=== PATIENT | female | born 1965 | race Caucasian/White ===

== ENCOUNTER 2017-02-23 11:36 | Emergency (ER) | payer OTHER, MEDICARE ==
[2017-02-23 11:44] VITALS: BP 124/80; PULSE 70; TEMP 98.6; BMI 23.1
[2017-02-23] MEDS ORDERED: KETOROLAC TROMETHAMINE 30 MG/1 ML VIAL IVPUSH ONE (12:41)
[2017-02-23] MEDS ORDERED: SODIUM CHLORIDE 0.9% 1000 ML INFUS.BAG IV ONE (12:41)
[2017-02-23] MEDS ORDERED: KETOROLAC TROMETHAMINE 30 MG/1 ML VIAL ONE (12:49)
[2017-02-23 13:08] LABS: BASOPHIL 0.6 % (0-2.0); MCH 30.7 pg (25.7-33.7); MCHC 34.5 g/dl (32.0-36.0); MEAN CELL VOLUME 89.2 fl (80-96); MEAN PLT VOLUME 8.5 fl (7.5-11.1); NEUTROPHILS 49.5 % (42.8-82.8); PLATELET COUNT 276 K/MM3 (134-434); RDW 12.4 % (11.6-15.6); WHITE BLOOD COUNT 4.5 K/mm3 (4.0-10.8)
[2017-02-23 13:14] LABS: ALBUMIN 3.8 g/dl (3.5-5.0); ALK PHOS 46 U/L (32-92); ANION GAP 3 (8-16); BILIRUBIN,TOTAL 0.3 mg/dl (0.2-1.0); CALCIUM 8.7 mg/dl (8.4-10.2); CO2 26 mmol/L (22-28); CREATININE 0.6 mg/dl (0.6-1.3); GLUCOSE,RANDOM 97 mg/dl (74-106); SGOT/AST 16 U/L (10-42); SGPT/ALT 19 U/L (10-40); TOT PROT 6.1 g/dl (6.4-8.3)
--- NOTE | 2017-02-23 13:50 | PDOC ---
History of Present Illness - General Chief Complaint: Pain, Acute Stated Complaint: pain - History of Present Illness Initial Comments: 02/23/17 13:55 Chief complaint joint pain History of present illness: 51 years old past medical history significant for migraines, IBS, history of C. difficile and chronic Lyme. Patient is currently undergoing antibiotic treatment for her line she has chronic multiple joint pain secondary to this. Patient states over the last several days for chronic joint pain has worsened it isn't her typical location left shoulder right shoulder bilateral knees. She denies chest pain shortness of breath. No nausea no vomiting no diarrhea Past History - Past Medical History Allergies/Adverse Reactions: Allergies Allergy/AdvReac Type Severity Reaction Status Date / Time Penicillins Allergy Verified 02/23/17 11:37 sulfamethoxazole Allergy Verified 02/23/17 11:37 [From Bactrim] trimethoprim [From Bactrim] Allergy Verified 02/23/17 11:37 Home Medications: Ambulatory Orders Cannibus Oil 0 mg PO ASDIR 02/23/17 Lorazepam [Ativan] 0.5 mg PO BID 02/23/17 Oxycodone HCl/Acetaminophen [Percocet 5-325 mg Tablet] 1 tab PO TID #6 tablet MDD 3 02/23/17 COPD: No GI Disorders: Yes Other medical history: lyme dz, chronic migraines, fibromyalga - Suicide/Smoking/Psychosocial Hx Smoking Status: No Smoking History: Never smoked Number of Cigarettes Smoked Daily: 0 Hx Alcohol Use: No Drug/Substance Use Hx: Yes Substance Use Type: Prescribed Review of Systems - Review of Systems Able to Perform ROS?: No Comments:: 02/23/17 13:58 ROS: A complete review of 10 out of 10 review of systems is taken and is negative apart from what is previously mentioned below and in the HPI. Is the patient limited Armenian proficient: No *Physical Exam - Vital Signs Last Vital Signs Temp Pulse Resp BP Pulse Ox 98.6 F 70 16 124/80 100 02/23/17 11:37 02/23/17 11:37 02/23/17 11:37 02/23/17 11:37 02/23/17 11:37 - Physical Exam Comments: 02/23/17 13:59 Vitals: Triage Vital signs reviewed General Appearance: no acute distress, well nourished well developed, Head: Atraumatic, Neck: Supple;No Nucal rigidity Chest Wall: Nontender Cardiac: Regular rate and rhythym, no murmurs, no rubs, no gallops, Lungs: Clear to auscultation bilateral, good air movement bilaterally, Abdomen: Soft, non distended, normal bowel sounds, non tender to palpation Extremities: Full range of motion to all extremities, reproducible left shoulder pain with range of motion. Skin: Warm and dry, no rashes or lesions, no rash, no petechiae Neuro: AOX3; Cranial Nerves 2-12 grossly intact, Strength intact to all extremities, Sensation intact to all extremities,gait normal Psych: normal mood, normal affect 02/23/17 14:01 ED Treatment Course - LABORATORY CBC & Chemistry Diagram: 02/23/17 12:48 02/23/17 12:48 - ADDITIONAL ORDERS Additional order review: Laboratory Results 02/23/17 12:48 Sodium 139 Potassium 3.7 Chloride 110 H Carbon Dioxide 26 Anion Gap 3 L BUN 11 D Creatinine 0.6 Creat Clearance w eGFR > 60 Random Glucose 97 Calcium 8.7 Total Bilirubin 0.3 D AST 16 ALT 19 D Alkaline Phosphatase 46 Total Protein 6.1 L Albumin 3.8 02/23/17 12:48 RBC 4.37 MCV 89.2 MCHC 34.5 RDW 12.4 MPV 8.5 Neutrophils % 49.5 Lymphocytes % 41.0 H Monocytes % 6.9 Eosinophils % 2.0 Basophils % 0.6 - Medications Given in the ED: ED Medications Discontinued Medications Generic Name Dose Route Start Last Admin Trade Name Freq PRN Reason Stop Dose Admin Ketorolac Tromethamine 30 mg 02/23/17 12:41 02/23/17 12:54 Toradol Injection - IVPUSH 02/23/17 12:42 30 mg ONCE ONE Administration Sodium Chloride 1,000 ml 02/23/17 12:41 02/23/17 12:54 Normal Saline - IV 02/23/17 12:42 1,000 ml ONCE ONE Administration Medical Decision Making - Medical Decision Making 02/23/17 14:02 Well-appearing no apparent distress patient presents with chronic joint pain secondary to line. She is currently finishing a course of antibiotics. She has no chest pain or shortness of breath her pain is reproducible and has been present for several months. In the emergency department she received IV fluids and Toradol she feels somewhat better. We'll discharge home a 2 day course of Percocet if no improvement she'll follow-up with her doctor on Sunday Findings, need for follow-up and strict return instructions discussed with patient. *DC/Admit/Observation/Transfer Diagnosis at time of Disposition: Joint pain Qualifiers: Joint pain location: shoulder Laterality: unspecified laterality Qualified Code (s): M25.519 - Pain in unspecified shoulder - Discharge Dispostion Condition at time of disposition: Stable - Referrals - Patient Instructions Additional Instructions: Drink plenty fluids. Take all home medications as prescribed. Follow-up with your doctor on Sunday. Take Percocet only as prescribed only if absolutely needed. Do not drive on this medication. Take with an [id number] stool softener such as Colace. Do not take this medication with any other narcotics or sedating medications are with alcohol. - Post Discharge Activity
== END 2017-02-23 14:19 | disposition home or self-care (01) ==
LOC: FER 11:36
PROC: 3E0333Z Introduction of Anti-inflammatory into Peripheral Vein, Percutaneous Approach (ICD-10-PCS; principal; 2017-02-23)
PROC: 3E0337Z Introduction of Electrolytic and Water Balance Substance into Peripheral Vein, Percutaneous Approach (ICD-10-PCS; 2017-02-23)
DX: M25.519 Pain in unspecified shoulder (principal); G89.29 Other chronic pain
CPT/HCPCS: 36415; 80053; 85025; 99282-25

== ENCOUNTER 2017-06-05 16:36 | Emergency (ER) | payer OTHER, MEDICARE ==
[2017-06-05 17:15] VITALS: BP 117/80; PULSE 76; TEMP 97.4; BMI 23.3
--- NOTE | 2017-06-05 17:20 | PDOC ---
History of Present Illness - General Chief Complaint: Chest Pain Stated Complaint: CHEST PAIN Time Seen by Provider: 06/05/17 16:58 Past History - Past Medical History Allergies/Adverse Reactions: Allergies Allergy/AdvReac Type Severity Reaction Status Date / Time sulfamethoxazole Allergy Verified 06/05/17 16:38 [From Bactrim] trimethoprim [From Bactrim] Allergy Verified 06/05/17 16:38 Home Medications: Ambulatory Orders Cannibus Oil 0 mg PO ASDIR 02/23/17 LORazepam [Ativan] 0.5 mg PO BID 02/23/17 Acetaminophen [Tylenol] 325 mg PO PRN PRN 06/05/17 Ceftriaxone [Rocephin 2Gm Ivpb (Pre-Docked)] 2 gm IVPB DAILY 06/05/17 COPD: No GI Disorders: Yes - Suicide/Smoking/Psychosocial Hx Smoking Status: No Smoking History: Never smoked Have you smoked in the past 12 months: No Number of Cigarettes Smoked Daily: 0 Information on smoking cessation initiated: No Hx Alcohol Use: No Drug/Substance Use Hx: No Substance Use Type: Prescribed *Physical Exam - Vital Signs Last Vital Signs Temp Pulse Resp BP Pulse Ox 97.4 F L 76 20 117/80 100 06/05/17 16:37 06/05/17 16:37 06/05/17 16:37 06/05/17 16:37 06/05/17 16:37
--- NOTE | 2017-06-05 17:27 | PDOC ---
History of Present Illness - General History Source: Patient Exam Limitations: No Limitations - History of Present Illness Initial Comments: 06/05/17 17:20 Patient is a 51F with history of chronic lyme disease with PICC line getting 2g ceftriaxone since Mar 26 here today complaining of chest pain since a half hour before presenting to the ED. She denies shortness of breath, nausea, vomiting, fevers and chills. She denies worsening of pain with exertion or improvement with rest. She denies changes in pain with positioning. She denies leg swelling, recent travel, and history of blood clots. 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 She is also complaining of pain at the PICC insertion site, she says there was a small amount of redness around the site. <Andres Joshi - Last Filed: 06/05/17 19:13> <Joshua Hwang - Last Filed: 06/07/17 10:18> - General Chief Complaint: Chest Pain Stated Complaint: CHEST PAIN Time Seen by Provider: 06/05/17 16:58 Past History - Past Medical History COPD: No GI Disorders: Yes - Suicide/Smoking/Psychosocial Hx Smoking Status: No Smoking History: Never smoked Have you smoked in the past 12 months: No Number of Cigarettes Smoked Daily: 0 Information on smoking cessation initiated: No Hx Alcohol Use: No Drug/Substance Use Hx: No Substance Use Type: Prescribed <Andres Joshi - Last Filed: 06/05/17 19:13> <Joshua Hwang - Last Filed: 06/07/17 10:18> - Past Medical History Allergies/Adverse Reactions: Allergies Allergy/AdvReac Type Severity Reaction Status Date / Time sulfamethoxazole Allergy Verified 06/05/17 16:38 [From Bactrim] trimethoprim [From Bactrim] Allergy Verified 06/05/17 16:38 Home Medications: Ambulatory Orders Cannibus Oil 0 mg PO ASDIR 02/23/17 LORazepam [Ativan] 0.5 mg PO BID 02/23/17 Acetaminophen [Tylenol] 325 mg PO PRN PRN 06/05/17 Ceftriaxone [Rocephin 2Gm Ivpb (Pre-Docked)] 2 gm IVPB DAILY 06/05/17 Review of Systems - Review of Systems Comments:: 06/05/17 17:27 GENERAL/CONSTITUTIONAL: No fever or chills. No weakness. HEAD, EYES, EARS, NOSE AND THROAT: No change in vision. No sore throat. CARDIOVASCULAR: Positive for chest pain. Negative for shortness of breath RESPIRATORY: No cough, wheezing, or hemoptysis. GASTROINTESTINAL: No nausea, vomiting, diarrhea or constipation. GENITOURINARY: No dysuria, frequency, or change in urination. MUSCULOSKELETAL: Positive for neck, back, knee and shoulder pain SKIN: No rash NEUROLOGIC: No headache, vertigo, loss of consciousness, or change in strength/ sensation. ENDOCRINE: No increased thirst. No abnormal weight change HEMATOLOGIC/LYMPHATIC: No anemia, easy bleeding, or history of blood clots. ALLERGIC/IMMUNOLOGIC: No hives or skin allergy. <Andres Joshi - Last Filed: 06/05/17 19:13> *Physical Exam - Vital Signs Last Vital Signs Temp Pulse Resp BP Pulse Ox 97.4 F L 76 20 117/80 100 06/05/17 16:37 06/05/17 16:37 06/05/17 16:37 06/05/17 16:37 06/05/17 16:37 - Physical Exam Comments: 06/05/17 17:29 GENERAL: Awake, alert, and fully oriented, in no acute distress HEAD: No signs of trauma, normocephalic, atraumatic EYES: PERRLA, EOMI, sclera anicteric, conjunctiva clear ENT: Auricles normal inspection, hearing grossly normal, nares patent, oropharynx clear without exudates. Moist mucosa NECK: Normal ROM, supple, no lymphadenopathy, JVD, or masses LUNGS: No distress, speaks full sentences, clear to auscultation bilaterally HEART: Regular rate and rhythm, normal S1 and S2, no murmurs, rubs or gallops, peripheral pulses normal and equal bilaterally. CHEST: Tender along sternal border ABDOMEN: Soft, nontender, normoactive bowel sounds. No guarding, no rebound. No masses L ARM: Tender at PICC insertion site, tender along medial arm. EXTREMITIES: Normal inspection, Normal range of motion, no edema. No clubbing or cyanosis. NEUROLOGICAL: Cranial nerves II through XII grossly intact. Normal speech, no focal sensorimotor deficits SKIN: Warm, Dry, normal turgor, no rashes or lesions noted. <Andres Joshi - Last Filed: 06/05/17 19:13> - Vital Signs Last Vital Signs Temp Pulse Resp BP Pulse Ox 97.4 F L 76 20 117/80 100 06/05/17 16:37 06/05/17 16:37 06/05/17 16:37 06/05/17 16:37 06/05/17 16:37 - Physical Exam Extremity: positive: Normal Capillary Refill, Other (PIC line in place , no signs of inflamation, no redness) <Joshua Hwang S - Last Filed: 06/07/17 10:18> ED Treatment Course - LABORATORY CBC & Chemistry Diagram: 06/05/17 18:40 06/05/17 18:40 - RADIOLOGY Radiology Studies Ordered: Category Date Time Status CHEST CTA [CT] Stat CT Scan 06/05/17 17:19 Ordered CHEST X-RAY PORTABLE* [RAD] Stat Radiology 06/05/17 17:12 Ordered DUPLEX VASCUL US-1 ARM [US] Stat Ultrasound 06/05/17 17:13 Ordered <Andres Joshi - Last Filed: 06/05/17 19:13> - LABORATORY CBC & Chemistry Diagram: 06/05/17 18:40 06/05/17 18:40 - ADDITIONAL ORDERS Additional order review: 06/05/17 18:40 RBC 4.59 MCV 88.2 MCHC 34.6 RDW 12.9 MPV 8.2 Neutrophils % 45.2 Lymphocytes % 43.4 H Monocytes % 7.5 Eosinophils % 3.3 Basophils % 0.6 - Medications Given in the ED: ED Medications Discontinued Medications Generic Name Dose Route Start Last Admin Trade Name Christiano PRN Reason Stop Dose Admin Acetaminophen 1,000 mg 06/05/17 19:47 06/05/17 19:50 Tylenol - PO 06/05/17 19:48 1,000 mg ONCE ONE Administration <Joshua Hwang S - Last Filed: 06/07/17 10:18> Medical Decision Making - Medical Decision Making 06/05/17 17:29 Patient is 51F with history of possible blood clotting disorder, picc line, lyme disease here today complaining of arm and chest pain. Vital signs stable and normal. Patient's risk for blood clot is elevated due to picc line, age, and possible disorder. Will evaluate with cbc, cmp, trop, ekg, mg, pt/inr, cxr, cta, us of left upper extremity. <Andres Joshi - Last Filed: 06/05/17 19:13> *DC/Admit/Observation/Transfer <Andres Joshi - Last Filed: 06/05/17 19:13> - Discharge Dispostion Admit: No <Joshua Hwang - Last Filed: 06/07/17 10:18> Diagnosis at time of Disposition: Chest pain Qualifiers: Chest pain type: unspecified Qualified Code(s): R07.9 - Chest pain, unspecified - Discharge Dispostion Disposition: HOME Condition at time of disposition: Stable - Patient Instructions Printed Discharge Instructions: DI for Atypical Chest Pain Additional Instructions: Tylenol or Motrin as needed for the pain/ Return to the emergency department immediately with ANY new, persistent or worsening symptoms. Continue any medications as previously prescribed by your physician. You should follow up with your primary doctor as soon as possible regarding today's emergency department visit. . Please make sure your doctor reviews the results of your emergency evaluation. Thank you for coming to the Emergency Department today for your care. It was a pleasure to see you today. Please note that your evaluation is INCOMPLETE until you follow-up with your doctor.
--- NOTE | 2017-06-05 17:56 | PDOC ---
Attending Attestation - Resident Resident Name: MgAndres olivera - ED Attending Attestation I have performed the following: I have examined & evaluated the patient, The case was reviewed & discussed with the resident, I agree w/resident's findings & plan, Exceptions are as noted - HPI HPI: 51 y/o c/o sob, chest pain, arm pain at site of PIC line 06/05/17 17:52 - Physicial Exam PE: Alert oriented x 3, lungs clear, tenederness without redness at the insertionof the PIC line 06/05/17 17:53 - Medical Decision Making To r/o thrombosed vein at PIC line entrance, Venous Duolex of the upper extremity as well as CT &iv contrast to r/o P E 06/05/17 17:[address] Burdick at shift change. Results of imaging pending 06/06/17 15:35
[2017-06-05 19:04] LABS: BASO % 0.6 % (0-2.0); EOS % 3.3 % (0-4.5); HEMATOCRIT 40.5 % (32.4-45.2); LYMPH % 43.4 % (8-40); MCH 30.5 pg (25.7-33.7); MCHC 34.6 g/dl (32.0-36.0); MEAN CELL VOLUME 88.2 fl (80-96); MEAN PLT VOLUME 8.2 fl (7.5-11.1); MONO % 7.5 % (3.8-10.2); NEUT % 45.2 % (42.8-82.8); PLATELET COUNT 273 K/MM3 (134-434); RBC 4.59 M/mm3 (3.60-5.2); RDW 12.9 % (11.6-15.6)
[2017-06-05 19:07] LABS: INR 1.03 (0.82-1.09); PROTHROMBIN TIME (PATIENT) 11.5 SEC (10.2-13.0)
[2017-06-05 19:08] LABS: ALBUMIN 4.2 g/dl (3.5-5.0); ALK PHOS 49 U/L (32-92); ANION GAP 3 (8-16); BLOOD UREA NITROGEN 13 mg/dl (7-18); CALCIUM 8.7 mg/dl (8.4-10.2); CHLORIDE 107 mmol/L (98-107); CO2 25 mmol/L (22-28); GLUCOSE,RANDOM 128 mg/dl (74-106); MAGNESIUM 1.9 mg/dL (1.8-2.4); POTASSIUM 3.9 mmol/L (3.5-5.1); SGOT/AST 22 U/L (10-42); SGPT/ALT 19 U/L (10-40); SODIUM 135 mmol/L (136-145)
[2017-06-05 19:09] LABS: CREATININE < 0.8 mg/dl (0.6-1.3)
[2017-06-05] MEDS ORDERED: ACETAMINOPHEN 500 MG TABLET (FP) PO ONE (19:47)
[2017-06-05] MEDS ORDERED: ACETAMINOPHEN 500 MG TABLET (FP) ONE (19:48)
--- NOTE | 2017-06-05 19:51 | PDOC ---
*Physical Exam - Vital Signs Last Vital Signs Temp Pulse Resp BP Pulse Ox 97.4 F L 76 20 117/80 100 06/05/17 16:37 06/05/17 16:37 06/05/17 16:37 06/05/17 16:37 06/05/17 16:37 ED Treatment Course - LABORATORY CBC & Chemistry Diagram: 06/05/17 18:40 06/05/17 18:40 - ADDITIONAL ORDERS Additional order review: Laboratory Results 06/05/17 06/05/17 06/05/17 18:40 18:40 18:40 PT with INR INR Sodium 135 L Potassium 3.9 Chloride 107 Carbon Dioxide 25 Anion Gap 3 L BUN 13 Creatinine < 0.8 D Creat Clearance w eGFR > 60 Random Glucose 128 H D Calcium 8.7 Magnesium 1.9 AST 22 D ALT 19 Alkaline Phosphatase 49 Creatine Kinase 92 Troponin I < 0.03 Total Protein 7.0 Albumin 4.2 06/05/17 18:40 PT with INR 11.5 INR 1.03 Sodium Potassium Chloride Carbon Dioxide Anion Gap BUN Creatinine Creat Clearance w eGFR Random Glucose Calcium Magnesium AST ALT Alkaline Phosphatase Creatine Kinase Troponin I Total Protein Albumin 06/05/17 18:40 RBC 4.59 MCV 88.2 MCHC 34.6 RDW 12.9 MPV 8.2 Neutrophils % 45.2 Lymphocytes % 43.4 H Monocytes % 7.5 Eosinophils % 3.3 Basophils % 0.6 - Medications Given in the ED: ED Medications Discontinued Medications Generic Name Dose Route Start Last Admin Trade Name Freq PRN Reason Stop Dose Admin Acetaminophen 1,000 mg 06/05/17 19:47 06/05/17 19:50 Tylenol - PO 06/05/17 19:48 1,000 mg ONCE ONE Administration Progress Note - Progress Note Progress Note: 19:00 Care of this patient was transferred to ne from Dr. Hwang at 1900 hrs. patient was seen initially by the EM resident and in conjunction with Dr. Hwang. Patient has a PICC line and comes in for evaluation of some discomfort in her chest as well as the area of the PICC line. Patient had a workup including labs which included a normal white count and the normal chemistries. Patient had an ultrasound Doppler to rule out DVT or clot in the pain associated with the PICC line the ultrasound Doppler was negative for any clot or DVT. Patient has a CT angio to rule out pulmonary embolism as she has a questionable history of a hypercoagulability disorder. CAT scan is is still pending. Patient otherwise is in no acute distress complaining of discomfort for which I will medicate with Tylenol 16:45 CT Pawan of the chest was negative for any pulmonary embolism Plan is to discharge patient have her follow-up with her primary care doctor for further evaluation. Uncertain as to the etiology of the chest pain but most likely is skeletal muscle. *DC/Admit/Observation/Transfer Diagnosis at time of Disposition: Chest pain Qualifiers: Chest pain type: unspecified Qualified Code(s): R07.9 - Chest pain, unspecified - Discharge Dispostion Disposition: HOME Admit: No - Referrals - Patient Instructions Printed Discharge Instructions: DI for Atypical Chest Pain Additional Instructions: Tylenol or Motrin as needed for the pain/ Return to the emergency department immediately with ANY new, persistent or worsening symptoms. Continue any medications as previously prescribed by your physician. You should follow up with your primary doctor as soon as possible regarding today's emergency department visit. . Please make sure your doctor reviews the results of your emergency evaluation. Thank you for coming to the Emergency Department today for your care. It was a pleasure to see you today. Please note that your evaluation is INCOMPLETE until you follow-up with your doctor. - Post Discharge Activity
[2017-06-05 20:34] LABS: BILIRUBIN,TOTAL < 0.5 mg/dl (0.2-1.0)
--- NOTE | 2017-06-06 09:57 | EKG ---
Test Reason : Blood Pressure : / mmHG Vent. Rate : 070 BPM Atrial Rate : 070 BPM P-R Int : 204 ms QRS Dur : 082 ms QT Int : 418 ms P-R-T Axes : 052 032 036 degrees QTc Int : 451 ms NORMAL SINUS RHYTHM NORMAL ECG NO PREVIOUS ECGS AVAILABLE Confirmed by JEANIE CAVAZOS, SEJAL ([id number]) on 06/06/2017 9:57:31 AM Referred By: DR WALTERS Confirmed By:SEJAL WARE MD
== END 2017-06-05 20:06 | disposition home or self-care (01) ==
LOC: FER 16:36
DX: R07.9 Chest pain, unspecified (principal); A69.20 Lyme disease, unspecified
CPT/HCPCS: 36415; 71045-TC-FY; 71275-TC; 80053; 82550; 83735; 84484; 85025; 85610; 93005; 93971; 99282-25